=== PATIENT | male | born 1960 | race Caucasian/White ===

== ENCOUNTER 2020-02-01 20:34 | Inpatient (IN) ==
[2020-02-01] MEDS ORDERED: DILTIAZEM 25 MG/5 ML VIAL IV ONE ×2 (22:28)
[2020-02-01] MEDS ORDERED: dilTIAZem Drip 125 MG/125 ML PREMIX IV SCH (22:30)
[2020-02-01] MEDS ORDERED: ALBUTEROL 2.5 MG/3 ML NEB RESP TX PRN (22:35)
[2020-02-01] MEDS ORDERED: ONDANSETRON 4 MG/2 ML VIAL IV PRN (22:35)
[2020-02-01] MEDS ORDERED: PROMETHAZINE 25 MG/1 ML VIAL IM PRN (22:35)
[2020-02-01 22:47] LABS: Basophils % 0.2 % (0.0-0.8); Lymphocytes % 2.5 % (21.2-54.2); Red Cell Distribution Width 13.1 % (9.3-17.3)
[2020-02-01] MEDS: SODIUM CHLORIDE 0.9% 1,000 ML IV SCH (22:56)
[2020-02-01] MEDS: PANTOPRAZOLE 40 MG VIAL IV SCH (22:57)
[2020-02-01 23:06] LABS: Hematocrit 39.4 VOL% (42.0-52.0); Immature Granulocytes % 0.8 %; Immature Granulocytes Absolute 0.19 #; Lymphocytes # 0.6 10*3/uL (1.4-4.0); Mean Corpuscular HGB Conc 37.8 GM/DL (32-36); Mean Corpuscular Volume 84.7 FL (87-102); Mean Platelet Volume 9.7 FL (9.6-12.0); Neutrophils % 91.5 % (38.7-73.9); Platelet Count 284 T/CUMM (130-400); Red Blood Count 4.65 MC/CUMM (3.8-5.5); White Blood Count 25.2 T/CUMM (4-12)
[2020-02-01 23:07] LABS: Hemoglobin 14.9 GM/DL (14.0-18.0)
[2020-02-01 23:14] LABS: Albumin 2.8 G/DL (3.4-5.0); Bilirubin,Total 1.4 MG/DL (0.2-1.0); Calcium 8.7 MG/DL (8.5-10.1); Total Protein 5.9 G/DL (6.4-8.3)
[2020-02-01] MEDS ORDERED: POTASSIUM CHLORIDE RIDER 10 MEQ in PREMIX 1 EACH IV PRN (23:43)
[2020-02-01] MEDS ORDERED: MAGNESIUM SULF RIDER 4 GM in PREMIX 1 EACH IV PRN (23:43)
[2020-02-01] MEDS ORDERED: MAGNESIUM SULF RIDER 2 GM in PREMIX 1 EACH IV PRN (23:43)
[2020-02-01 23:54] LABS: Apearance,Urine CLEAR (Clear); Bacteria,Urine Occasional /HPF (Few); Bilirubin,Urine Negative (Negative); Blood, Urine Small mg/dL (Negative); Glucose,Urine (UA) Negative (Negative); Ketones,Urine 20 mg/dL (Negative); Nitrite,Urine Negative (Negative); Protein,Urine Negative; RBC,Urine 2 /HPF (0-4); Urine Color Straw (Yellow); Urine Specific Gravity 1.002 (1.001-1.035); Urine Urobilinogen < 2.0 EU/DL (0.2-1.0); WBC,Urine 4 /HPF (0-6)
[2020-02-02 00:01] LABS: Band Neutrophils 4 % (0-10); Lymphocytes 1 % (20-55); Segmented Neutrophils 91 % (50-85)
[2020-02-02 00:03] LABS: Platelet Estimate Normal; Total Cells Counted 100
[2020-02-02] MEDS: LACTATED RINGERS 1,000 ML IV SCH ×2 (00:47→09:15)
[2020-02-02 04:04] LABS: Basophils % 0.1 % (0.0-0.8); Immature Granulocytes % 0.6 %; Immature Granulocytes Absolute 0.11 #; Lymphocytes # 0.5 10*3/uL (1.4-4.0); Lymphocytes % 2.7 % (21.2-54.2); Mean Corpuscular HGB Conc 38.2 GM/DL (32-36); Mean Corpuscular Volume 83.7 FL (87-102); Mean Platelet Volume 9.5 FL (9.6-12.0); Monocytes % 5.8 % (1.7-12.7); Neutrophils % 90.8 % (38.7-73.9); Platelet Count 257 T/CUMM (130-400); Red Blood Count 4.29 MC/CUMM (3.8-5.5); Red Cell Distribution Width 13.2 % (9.3-17.3); White Blood Count 19.3 T/CUMM (4-12)
[2020-02-02 04:24] LABS: ABG Base Excess 0.1 MMOL/L (-2.5-2.5); ABG HCO3 24.5 MMOL/L (20-26); ABG Oxygen Saturation 96.4 % (95-100); ABG PCO2 29.2 MM HG (35-48); ABG PH 7.491 (7.35-7.45); ABG PO2 80.1 MM HG (80-95); ABG TCO2 19.2 MMOL/L (23-27)
[2020-02-02 04:32] LABS: Hematocrit 35.6 VOL% (42.0-52.0); Hemoglobin 13.7 GM/DL (14.0-18.0)
[2020-02-02 04:41] LABS: Albumin 2.8 G/DL (3.4-5.0); Bilirubin,Total 1.1 MG/DL (0.2-1.0); Calcium 8.4 MG/DL (8.5-10.1); Osmolality,Calculated 234.5 MOS/KG (273-304); Total Protein 5.4 G/DL (6.4-8.3)
[2020-02-02 04:43] LABS: CKMB % 1.8 %; Troponin I < 0.015 NG/ML (0.00-0.045)
[2020-02-02 04:52] LABS: Band Neutrophils 1 % (0-10); Platelet Estimate Normal; Segmented Neutrophils 95 % (50-85); Total Cells Counted 100
[2020-02-02] MEDS: SODIUM CHLORIDE 0.9% 1,000 ML IV SCH (07:22)
[2020-02-02] MEDS: DILTIAZEM CD 240 MG CAPSULE PO SCH (09:21)
[2020-02-02] MEDS: DIGOXIN 0.25 MG TABLET PO SCH (09:21)
[2020-02-02] MEDS: carvediloL 12.5 MG TABLET PO SCH ×3 (09:21→20:48)
[2020-02-02] MEDS: APIXABAN 5 MG TABLET PO SCH ×2 (09:21→20:48)
[2020-02-02] MEDS: MULTIVITAMIN (CENTRUM) TABLET PO SCH (09:21)
[2020-02-02 09:42] LABS: Potassium,Urine Random 11 MMOL/L
[2020-02-02 12:55] LABS: Calcium 8.5 MG/DL (8.5-10.1); Osmolality,Calculated 241.1 MOS/KG (273-304)
[2020-02-02 18:49] LABS: Calcium 8.3 MG/DL (8.5-10.1); Osmolality,Calculated 246.6 MOS/KG (273-304)
[2020-02-02] MEDS: PANTOPRAZOLE 40 MG VIAL IV SCH (20:45)
[2020-02-03] MEDS: PANTOPRAZOLE 40 MG VIAL IV SCH ×2 (00:28→20:21)
[2020-02-03 00:52] LABS: Calcium 8.2 MG/DL (8.5-10.1); Osmolality,Calculated 249.4 MOS/KG (273-304)
[2020-02-03 05:16] LABS: Osmolality,Calculated 253.1 MOS/KG (273-304)
[2020-02-03] MEDS: MULTIVITAMIN (CENTRUM) TABLET PO SCH (09:49)
[2020-02-03] MEDS: APIXABAN 5 MG TABLET PO SCH ×2 (09:49→20:22)
[2020-02-03] MEDS: DIGOXIN 0.25 MG TABLET PO SCH (09:49)
[2020-02-03] MEDS: DILTIAZEM CD 240 MG CAPSULE PO SCH (09:51)
[2020-02-03] MEDS: carvediloL 12.5 MG TABLET PO SCH ×3 (09:51→20:23)
[2020-02-03] MEDS: DOCUSATE SODIUM 100 MG CAPSULE PO SCH ×2 (12:22→20:22)
[2020-02-03] MEDS: POLYETHYLENE GLYCOL POWDER 17 GM PACK PO SCH (12:22)
[2020-02-03] MEDS ORDERED: TUBERCULIN SKIN TEST 0.1 ML SYRINGE INTRADERM ONE (15:05)
[2020-02-03] MEDS ORDERED: ATROPINE 1 MG/10 ML SYRINGE IV PRN ×2 (21:36→21:57)
[2020-02-04] MEDS: PANTOPRAZOLE 40 MG VIAL IV SCH ×3 (00:51→22:26)
[2020-02-04 05:42] LABS: Basophils % 0.1 % (0.0-0.8); Eosinophils % 0.2 % (0.00-10.9); Hematocrit 33.6 VOL% (42.0-52.0); Hemoglobin 11.6 GM/DL (14.0-18.0); Immature Granulocytes % 0.9 %; Immature Granulocytes Absolute 0.12 #; Lymphocytes # 0.7 10*3/uL (1.4-4.0); Lymphocytes % 5.3 % (21.2-54.2); Mean Corpuscular HGB Conc 34.5 GM/DL (32-36); Mean Corpuscular Volume 90.3 FL (87-102); Mean Platelet Volume 9.9 FL (9.6-12.0); Monocytes % 8.8 % (1.7-12.7); Neutrophils % 84.7 % (38.7-73.9); Platelet Count 246 T/CUMM (130-400); Red Blood Count 3.72 MC/CUMM (3.8-5.5); Red Cell Distribution Width 14.5 % (9.3-17.3); White Blood Count 12.6 T/CUMM (4-12)
[2020-02-04 06:27] LABS: Calcium 8.1 MG/DL (8.5-10.1); Osmolality,Calculated 259.7 MOS/KG (273-304)
[2020-02-04] MEDS: DILTIAZEM CD 240 MG CAPSULE PO SCH (08:33)
[2020-02-04] MEDS: carvediloL 12.5 MG TABLET PO SCH ×3 (08:34→20:00)
[2020-02-04] MEDS: DIGOXIN 0.25 MG TABLET PO SCH (09:41)
[2020-02-04] MEDS: MULTIVITAMIN (CENTRUM) TABLET PO SCH (09:41)
[2020-02-04] MEDS: APIXABAN 5 MG TABLET PO SCH ×2 (09:41→20:00)
[2020-02-04] MEDS: DOCUSATE SODIUM 100 MG CAPSULE PO SCH ×2 (09:41→20:00)
[2020-02-04] MEDS: POLYETHYLENE GLYCOL POWDER 17 GM PACK PO SCH (09:42)
[2020-02-04] MEDS ORDERED: METOPROLOL TARTRATE 5 MG/5 ML VIAL IV ONE (18:52)
[2020-02-04] MEDS ORDERED: DILTIAZEM 25 MG/5 ML VIAL IV ONE (21:06)
[2020-02-04] MEDS ORDERED: DIGOXIN 0.5 MG/2 ML AMP IV ONE ×2 (21:10→21:53)
[2020-02-05 05:23] LABS: Basophils % 0.1 % (0.0-0.8); Eosinophils % 0.2 % (0.00-10.9); Hematocrit 34.3 VOL% (42.0-52.0); Hemoglobin 12.4 GM/DL (14.0-18.0); Immature Granulocytes % 0.8 %; Immature Granulocytes Absolute 0.11 #; Lymphocytes # 0.7 10*3/uL (1.4-4.0); Lymphocytes % 4.9 % (21.2-54.2); Mean Corpuscular HGB Conc 36.2 GM/DL (32-36); Mean Corpuscular Volume 89.8 FL (87-102); Mean Platelet Volume 9.8 FL (9.6-12.0); Monocytes % 9.1 % (1.7-12.7); Neutrophils % 84.9 % (38.7-73.9); Platelet Count 240 T/CUMM (130-400); Red Blood Count 3.82 MC/CUMM (3.8-5.5); Red Cell Distribution Width 14.3 % (9.3-17.3); White Blood Count 14.5 T/CUMM (4-12)
[2020-02-05 06:06] LABS: Band Neutrophils 1 % (0-10); Hypochromasia 1+; Lymphocytes 5 % (20-55); Platelet Estimate Adequate; Segmented Neutrophils 88 % (50-85); Total Cells Counted 100
[2020-02-05 06:46] LABS: Calcium 8.4 MG/DL (8.5-10.1); Osmolality,Calculated 261.5 MOS/KG (273-304)
[2020-02-05] MEDS: POLYETHYLENE GLYCOL POWDER 17 GM PACK PO SCH (09:06)
[2020-02-05] MEDS: MULTIVITAMIN (CENTRUM) TABLET PO SCH (09:07)
[2020-02-05] MEDS: DILTIAZEM CD 240 MG CAPSULE PO SCH (09:07)
[2020-02-05] MEDS: APIXABAN 5 MG TABLET PO SCH (09:08)
[2020-02-05] MEDS: DOCUSATE SODIUM 100 MG CAPSULE PO SCH ×2 (09:08→21:36)
[2020-02-05] MEDS: carvediloL 12.5 MG TABLET PO SCH ×2 (09:08→16:00)
[2020-02-05] MEDS: DIGOXIN 0.25 MG TABLET PO SCH (09:09)
[2020-02-05] MEDS: FUROSEMIDE 40 MG/4 ML VIAL IV SCH (15:56)
[2020-02-05] MEDS: ENOXAPARIN 100 MG/ML SYRINGE SUBCUT SCH (21:36)
[2020-02-05] MEDS: PANTOPRAZOLE 40 MG VIAL IV SCH (22:22)
[2020-02-06 05:24] LABS: Basophils % 0.2 % (0.0-0.8); Eosinophils % 0.1 % (0.00-10.9); Hemoglobin 12.3 GM/DL (14.0-18.0); Immature Granulocytes % 1.2 %; Lymphocytes # 0.8 10*3/uL (1.4-4.0); Mean Corpuscular HGB Conc 35.1 GM/DL (32-36); Mean Corpuscular Volume 90.4 FL (87-102); Mean Platelet Volume 9.7 FL (9.6-12.0); Monocytes % 8.3 % (1.7-12.7); Neutrophils % 85.2 % (38.7-73.9); Platelet Count 251 T/CUMM (130-400); Red Blood Count 3.87 MC/CUMM (3.8-5.5); Red Cell Distribution Width 14.2 % (9.3-17.3); White Blood Count 16.8 T/CUMM (4-12)
[2020-02-06 05:50] LABS: Calcium 8.4 MG/DL (8.5-10.1); Osmolality,Calculated 261.5 MOS/KG (273-304)
[2020-02-06 05:51] LABS: Calcium 8.5 MG/DL (8.5-10.1); Osmolality,Calculated 259.7 MOS/KG (273-304)
[2020-02-06 05:57] LABS: Albumin 2.2 G/DL (3.4-5.0); Bilirubin,Direct 0.52 MG/DL (0.0-0.20); Bilirubin,Indirect 1.4 MG/DL (0.0-1.0); Bilirubin,Total 1.9 MG/DL (0.2-1.0); Risk Ratio 3.09; Total Protein 5.5 G/DL (6.4-8.3)
[2020-02-06] MEDS: FUROSEMIDE 40 MG/4 ML VIAL IV SCH (08:54)
[2020-02-06] MEDS ORDERED: POTASSIUM CHLORIDE 20 MEQ TABLET PO ONE (08:57)
[2020-02-06] MEDS: AZITHROMYCIN INJ 500 MG in SODIUM CHLORIDE 0.9% 250 ML IV SCH (08:59)
[2020-02-06] MEDS ORDERED: METOPROLOL TARTRATE 25 MG TABLET PO SCH (09:30)
[2020-02-06] MEDS: MULTIVITAMIN (CENTRUM) TABLET PO SCH (09:34)
[2020-02-06] MEDS: ASCORBIC ACID 500 MG TABLET PO SCH ×2 (09:34→21:55)
[2020-02-06] MEDS: DOCUSATE SODIUM 100 MG CAPSULE PO SCH ×2 (09:34→21:54)
[2020-02-06] MEDS: POLYETHYLENE GLYCOL POWDER 17 GM PACK PO SCH (09:35)
[2020-02-06] MEDS: ENOXAPARIN 100 MG/ML SYRINGE SUBCUT SCH (09:45)
[2020-02-06] MEDS: carvediloL 12.5 MG TABLET PO SCH ×2 (12:16→21:55)
[2020-02-06 12:55] LABS: Osmolality, Serum 247 mOsm/kg (275 - 295)
[2020-02-06 13:12] LABS: Osmolality, Urine 152 mOsm/kg (150 - 1150)
[2020-02-06] MEDS: DILTIAZEM CD 240 MG CAPSULE PO SCH (14:23)
[2020-02-06] MEDS: APIXABAN 5 MG TABLET PO SCH (21:56)
[2020-02-06] MEDS: PANTOPRAZOLE 40 MG VIAL IV SCH (21:56)
[2020-02-07 06:03] LABS: Basophils # 0.1 10*3/uL (0.0-0.2); Basophils % 0.4 % (0.0-0.8); Eosinophils # 0.1 10*3/uL (0.0-0.87); Eosinophils % 0.6 % (0.00-10.9); Hematocrit 36.1 VOL% (42.0-52.0); Hemoglobin 12.6 GM/DL (14.0-18.0); Immature Granulocytes % 1.2 %; Immature Granulocytes Absolute 0.15 #; Lymphocytes # 0.9 10*3/uL (1.4-4.0); Lymphocytes % 6.8 % (21.2-54.2); Mean Corpuscular HGB Conc 34.9 GM/DL (32-36); Mean Corpuscular Volume 90.5 FL (87-102); Mean Platelet Volume 9.5 FL (9.6-12.0); Monocytes % 9.2 % (1.7-12.7); Neutrophils % 81.8 % (38.7-73.9); Platelet Count 259 T/CUMM (130-400); Red Blood Count 3.99 MC/CUMM (3.8-5.5); Red Cell Distribution Width 14.3 % (9.3-17.3); White Blood Count 12.6 T/CUMM (4-12)
[2020-02-07 06:32] LABS: Calcium 8.5 MG/DL (8.5-10.1); Osmolality,Calculated 262.5 MOS/KG (273-304)
[2020-02-07] MEDS: ASCORBIC ACID 500 MG TABLET PO SCH ×2 (09:06→21:03)
[2020-02-07] MEDS: MULTIVITAMIN (CENTRUM) TABLET PO SCH (09:06)
[2020-02-07] MEDS: DILTIAZEM CD 240 MG CAPSULE PO SCH (09:06)
[2020-02-07] MEDS: POTASSIUM CHLORIDE 20 MEQ TABLET PO PRN ×2 (09:06→11:19)
[2020-02-07] MEDS: APIXABAN 5 MG TABLET PO SCH ×2 (09:06→21:04)
[2020-02-07] MEDS: carvediloL 12.5 MG TABLET PO SCH ×2 (09:07→21:04)
[2020-02-07] MEDS: POLYETHYLENE GLYCOL POWDER 17 GM PACK PO SCH (09:07)
[2020-02-07] MEDS: FUROSEMIDE 40 MG/4 ML VIAL IV SCH (09:07)
[2020-02-07] MEDS: AZITHROMYCIN INJ 500 MG in SODIUM CHLORIDE 0.9% 250 ML IV SCH (09:07)
[2020-02-07] MEDS: DOCUSATE SODIUM 100 MG CAPSULE PO SCH ×2 (09:07→21:03)
[2020-02-07] MEDS ORDERED: POTASSIUM CHLORIDE 20 MEQ TABLET PO ONE (09:54)
[2020-02-07] MEDS: PANTOPRAZOLE 40 MG VIAL IV SCH (21:03)
[2020-02-08 05:38] LABS: Basophils % 0.4 % (0.0-0.8); Eosinophils # 0.1 10*3/uL (0.0-0.87); Eosinophils % 1.4 % (0.00-10.9); Hematocrit 38.5 VOL% (42.0-52.0); Hemoglobin 13.4 GM/DL (14.0-18.0); Immature Granulocytes % 1.8 %; Immature Granulocytes Absolute 0.17 #; Lymphocytes % 11.1 % (21.2-54.2); Mean Corpuscular HGB Conc 34.8 GM/DL (32-36); Mean Corpuscular Volume 90.4 FL (87-102); Mean Platelet Volume 9.7 FL (9.6-12.0); Monocytes % 9.7 % (1.7-12.7); Neutrophils % 75.6 % (38.7-73.9); Platelet Count 320 T/CUMM (130-400); Red Blood Count 4.26 MC/CUMM (3.8-5.5); Red Cell Distribution Width 14.1 % (9.3-17.3); White Blood Count 9.3 T/CUMM (4-12)
[2020-02-08 06:07] LABS: Calcium 8.7 MG/DL (8.5-10.1); Osmolality,Calculated 264.5 MOS/KG (273-304)
[2020-02-08] MEDS: APIXABAN 5 MG TABLET PO SCH ×2 (09:30→20:31)
[2020-02-08] MEDS: ASCORBIC ACID 500 MG TABLET PO SCH ×2 (09:30→21:56)
[2020-02-08] MEDS: MULTIVITAMIN (CENTRUM) TABLET PO SCH (09:30)
[2020-02-08] MEDS: DOCUSATE SODIUM 100 MG CAPSULE PO SCH ×2 (09:30→20:31)
[2020-02-08] MEDS: DILTIAZEM CD 240 MG CAPSULE PO SCH (09:30)
[2020-02-08] MEDS: POLYETHYLENE GLYCOL POWDER 17 GM PACK PO SCH (09:30)
[2020-02-08] MEDS: carvediloL 12.5 MG TABLET PO SCH ×2 (09:30→20:31)
[2020-02-08] MEDS: FUROSEMIDE 40 MG/4 ML VIAL IV SCH (09:34)
[2020-02-08] MEDS: AZITHROMYCIN INJ 500 MG in SODIUM CHLORIDE 0.9% 250 ML IV SCH (12:05)
[2020-02-08] MEDS: PANTOPRAZOLE 40 MG VIAL IV SCH (20:32)
[2020-02-09] MEDS: AZITHROMYCIN INJ 500 MG in SODIUM CHLORIDE 0.9% 250 ML IV SCH (08:39)
[2020-02-09] MEDS: FUROSEMIDE 40 MG/4 ML VIAL IV SCH (08:42)
[2020-02-09] MEDS: ASCORBIC ACID 500 MG TABLET PO SCH (08:43)
[2020-02-09] MEDS: MULTIVITAMIN (CENTRUM) TABLET PO SCH (08:44)
[2020-02-09] MEDS: POLYETHYLENE GLYCOL POWDER 17 GM PACK PO SCH (08:44)
[2020-02-09] MEDS: APIXABAN 5 MG TABLET PO SCH (08:44)
[2020-02-09] MEDS: carvediloL 12.5 MG TABLET PO SCH (08:44)
[2020-02-09] MEDS: DILTIAZEM CD 240 MG CAPSULE PO SCH (08:44)
[2020-02-09] MEDS: DOCUSATE SODIUM 100 MG CAPSULE PO SCH (08:45)
[2020-02-09 10:04] VITALS: BP 120/75
== END 2020-02-09 09:55 | DRG 426 ==
LOC: N.ICU 21:54 → SUATTDRO 21:54 → N.3E 02-02 17:10 → N.TELEN 02-04 20:50 → N.4E 02-07 12:05
PROVIDERS: ADMIT Internal Medicine; ATTEND Internal Medicine Geriatric Medicine